=== PATIENT | male | born 1990 | race Caucasian/White ===

== ENCOUNTER → 2024-06-04 | Outpatient (BNVA) | payer BC, SELFPAY | END | disposition home or self-care (01) | PROVIDERS: PCP Family Medicine; Referring Provider Family Medicine; Visit Provider Urology | DX: N40.0 Benign prostatic hyperplasia without lower urinary tract symptoms (principal); Z30.2 Encounter for sterilization; I10 Essential (primary) hypertension; E66.9 Obesity, unspecified; Z68.41 Body mass index [BMI] 40.0-44.9, adult; E78.00 Pure hypercholesterolemia, unspecified; K21.9 Gastro-esophageal reflux disease without esophagitis | CPT/HCPCS: 81003; 99212; G0463 ==

== ENCOUNTER 2024-09-16 11:50 | Day surgery (SDC) | payer BC, SELFPAY ==
--- NOTE | 2024-09-15 10:20 | EKG_ITS ---
[facility], [place] Test Date: 2024-09-15 Pat Name: BENJAMÍN SIMENTAL Department: Room: - Gender: Male Bearing Maker: DEJON : 1990 Requested By: Yves Moreau Order Number: [id number] Reading MD: Yves Moreau Measurements Intervals [place] Rate: 81 P: 48 ID: [id number] QRS: -41 QRSD: 122 T: 11 QT: 365 QTc: 424 Interpretive Statements SINUS RHYTHM MARKED LEFT AXIS DEVIATION [QRS AXIS < -30] MODERATE INTRAVENTRICULAR CONDUCTION DELAY [110+ ms QRS DURATION] NONSPECIFIC ST ELEVATION [0.05+ mV ST ELEVATION] No previous ECG available for comparison /[id number]/[email or web address]/[id number].pdf
[2024-09-15 10:42] VITALS: BMI 41.8
[2024-09-15 13:14] LABS: Alanine Aminotransferase 235 U/L (10-49); Albumin, Serum 4.8 gm/dL (3.5-5.0); Albumin/Globulin Ratio 1.8 (1.2-2.2); Alkaline Phosphatase 61 U/L (46-116); Anion Gap 13 (7-16); Aspartate Amino Transferase 97 U/L (0-34); BUN/Creatinine Ratio 9 Ratio (12-20); Bilirubin,Total 0.6 mg/dL (0.3-1.2); Blood Urea Nitrogen 8 mg/dL (9-23); Carbon Dioxide 29.8 mMol/L (20.0-31.0); Chloride 102 mMol/L (98-107); Creatinine (Component) 0.9 mg/dL (0.6-1.3); Estimated Creatinine Clearance 146.8 mL/min (>60); Globulin 2.6 gm/dL (2.3-3.5); Glucose 125 mg/dL (74-106); Osmolality,Calculated 288 (275-295); Sodium 145 mMol/L (136-145); Total Protein 7.4 gm/dL (5.7-8.2); eGFR > 60 See Note
[2024-09-16 12:36] VITALS: BP 132/83; PULSE 77; RESP 11; TEMP 36.7; O2SAT 96; BMI 41.6
[2024-09-16] MEDS: RINGERS LACTATED 1000 ML 1,000 ML 20 ML IV (12:45)
[2024-09-16 15:12] VITALS: BP 109/81; PULSE 80; RESP 20; TEMP 36.4; O2SAT 95
--- NOTE | 2024-09-16 15:12 | SUR.PHASEII ---
pt awake and alert, breathing unlabored on nc 4l. v/s stable. pt dressing to scrotal area cdi. report received from Dr. Ballard and Luis GA.
[2024-09-16 15:20] VITALS: BP 135/86; PULSE 72; RESP 18; TEMP 36.3; O2SAT 98
--- NOTE | 2024-09-16 15:20 | PD.SUROPNT ---
Date of Procedure 09/16/24 Pre Op Diagnosis Elective sterilization Post Op Diagnosis Same plus thickened cord structures Procedure Bilateral vasectomy Findings Bilateral vas no pathology Procedure Description Indication for procedure this is a 33-year-old gentleman who is with 4 children desired bilateral vasectomy procedure and complications were discussed with him in great detail informed consent is obtained he understood very well there is no warranty for permanent sterilization literature regarding bilateral vasectomy was provided to the patient Patient was brought to the operating room in a satisfactory condition after appropriate premedication was put on the operating table in a supine position he was appropriately identified by surgeon and operating room staff site scope and indications of the procedure were reconfirmed with the patient , MAC anesthetic was given ,parts were prepped and draped in a usual sterile fashion. Next the right vas deferens was palpated between 2 fingers and a thumb 2% lidocaine with quarter percent Marcaine was instilled appropriately vertical skin incision was made proper hemostasis was secured. Next the vas deferens was brought into the incision it was from its various fascial coverings between 2 silver clips centimeter of the vas deferens was excised. The lumen of the vas deferens was diathermized with coagulation diathermy distal end of the vas deferens was buried between various fascial layers. Skin was approximated with 3-0 chromic. Similar procedure was repeated on the opposite side. Next this sterile dressings were applied. Pressure bandage was given Patient having tolerated the procedure well and was sent to recovery room in a satisfactory condition to be discharged home with full postoperative instructions were verbally as well as in writing to be followed in urology office in 6 weeks' time. Patient disposition follow-up appointment in urology office in 3 months Anesthesia MAC and local Pathology / specimen None Estimated Blood Loss 0.5 Condition Stable Disposition PACU Surgeon Sotero Estrada MD Surgical Staff Operation Date: 09/16/24 14:00 Case Staff Anesthesiologist: Laurent Ballard
[2024-09-16 15:25] VITALS: BP 148/99; PULSE 74; RESP 18; TEMP 36.3; O2SAT 98
[2024-09-16 15:30] VITALS: BP 127/86; PULSE 68; RESP 18; TEMP 36.2; O2SAT 95
[2024-09-16 15:45] VITALS: BP 134/83; PULSE 72; RESP 19; TEMP 36.2; O2SAT 97
--- NOTE | 2024-09-16 15:50 | SUR.PHASEII ---
pt able to tolerate oral fluids without difficulty swallowing or nausea/vomiting.
--- NOTE | 2024-09-16 15:58 | SUR.PHASEII ---
pt awake and alert, breathing unlabored on room air. v/s stable. pt dressing to scrotal area cdi. pt able to ambulate to wheelchair with steady gait. d/c instructions given with Linda in room, all questions answered. pt d/c via wheelchair with all belongings.
== END 2024-09-16 15:58 | disposition home or self-care (01) ==
PROVIDERS: Anesthesiology; PCP Family Medicine; Referring Provider Urology; Visit Provider Urology
PROC: (CPT 55250; principal; 2024-09-16 14:00)
DX: Z30.2 Encounter for sterilization (principal); Z01.810 Encounter for preprocedural cardiovascular examination
CPT/HCPCS: 55250; 36415; 80053; 93005; A4217; A4649; J1885; J2250; J2704; J3010; J7120; A9270

== ENCOUNTER → 2025-02-19 | Outpatient (BNVA) | payer BC, SELFPAY | END | disposition home or self-care (01) | PROVIDERS: PCP Family Medicine; Referring Provider Family Medicine; Visit Provider Physician Assistant | DX: Z98.52 Vasectomy status (principal); I10 Essential (primary) hypertension; E66.9 Obesity, unspecified; Z68.39 Body mass index [BMI] 39.0-39.9, adult | CPT/HCPCS: Q3014 ==